=== PATIENT | male | born 1995 | race Caucasian/White ===

== ENCOUNTER 2024-04-27 20:57 | Emergency (ER) | payer OTHER, SELFPAY ==
[2024-04-27 21:03] VITALS: BP 120/76
--- NOTE | 2024-04-27 23:30 | ED.GENMED ---
History of Present Illness
General
Chief Complaint: Musculo-Skeletal Complaint
Source: patient
Exam Limitations: none
Time Seen by Provider: 04/27/24 23:11
Nursing documentation reviewed up to this point in time: agreed with
History of Present Illness
History of Present Illness:
Patient presents to ED secondary to sudden onset of right knee pain, as he was about to jump up, while playing basketball this evening. Denies direct trauma. Denies loss of sensation or weakness. Denies previous history of similar symptoms.
Past History
Past History
ED Past Medical History: Asthma and Psychiatric
ED Past Surgical History: Orthopedic
Social History
Tobacco: Non-smoker
Alcohol: Daily
Drug: Marijuana
Personal: Single
Living: with family
Employment: Not employed
Review of Systems
Review of Systems
Allergies reviewed?: Yes
All Other Systems: ROS reviewed and negative except as documented in HPI and ROS
Constitutional: Reports no symptoms
Musculoskeletal: Reports other (Knee pain)
Skin: Reports no symptoms
Neurological: Reports no symptoms
Phy Exam
Physical Exam
Physical Exam:
Physical Exam
General: moderate painful distress, not acutely ill. afebrile
Head: nc/at. eomi
Neck: supple. normal range of motion
Neuro: alert and oriented x 3. no focal neurological deficits
Skin: no rash
Psychiatric: well kept. interactive and cooperative
Extremities: soft tissue defect noted above patella with moderate tenderness to palpation.
Course
Orders/Labs/Results
Orders:
Orders
04/27/24 20:59
Knee, Right 4 or More Views [CR Knee- Right 4 Or More View*] Urgent
Comment:
Reason For Exam: SEVERE PAIN FROM BASKETBALL
04/27/24 23:30
Knee Immobilizer Right-Treatme ONCE
Oxycodone/Acetaminophen [Percocet 5/325] 1 tablet PO NOW STA
Vital Signs
Initial and Last Documented VS:
Initial Vital Signs
Temp Pulse Resp BP Pulse Ox
98.1 F 76 28 120/76 98
04/27/24 21:03 04/27/24 21:03 04/27/24 21:03 04/27/24 21:03 04/27/24 21:03
Last Documented Vital Signs
Temp Pulse Resp BP Pulse Ox
98.1 F 76 28 120/76 98
04/27/24 21:03 04/27/24 21:03 04/27/24 21:03 04/27/24 21:03 04/27/24 21:03
MDM/Problems Addressed
MDM/Problems Addressed:
X-ray: NAD.
History and exam concerning for potential, tendon injury. Patient otherwise remains neurovascular intact. Discussed with on-call orthopaedic surgeon, , who feels that patient can be discharged home at this time. Will f/u with the
patient in office this week for re-evaluation. Patient will be placed on knee immobilizer and provided with crutches for an outpatient follow-up with . Pt discharged home, to the care of his family
*Critical Care Note
Total Time (30-74mins, 75-104mins- exclusive of procedures): Not Applicable
ED Attending Note
-
Portions of this chart may have been created with voice recognition software.� Occasional wrong word or��sound alike� substitutions may have occurred due to the inherent limitations of voice recognition software.
Discharge Plan
Departure
Patient Disposition: Home (Routine Discharge)
Date of Disposition: 04/27/24
Time of Disposition: 23:51
Patient with high blood pressure during this ER visit?: No
Discharge Problem:
Injury of quadriceps tendon
Instructions: Knee Immobilizer (DC), Quadriceps and Patellar Tendon Injuries
Prescriptions:
New
oxycodone-acetaminophen [Percocet] 5-325 mg Tablet
1 tab PO Q6HPRN PRN (Reason: pain) Qty: 12 0RF
No Action
gabapentin 300 mg capsule
300 mg PO TID
Rx Instructions:
Day 1: 1 tablet 4 times per day. Day 2: 1 tablet 3 times per day. Day three 1 tablet twice a day. Day four 1 tablet at nighttime
propranolol 20 mg tablet
20 mg PO BID
Referrals:
Alfred Christensen DO [Family Provider] -
Memo Wick MD [Active] -
Activity Restrictions/Additional Instructions:
As discussed, please follow-up with referred orthopedic surgeon for further evaluation and treatment. Until then, strongly recommend continual use of provided crutches, to prevent further injuries. Your prescription has been sent electronically to
[facility] pharmacy in [place].
Interventions
Interventions:
*Risk Screen - Suicide Last Done: 04/28/24 00:22
*General Assessment Last Done: 04/28/24 00:22
*Neglect/Abuse Screening Last Done: 04/28/24 00:22
*ED COVID-19 Vaccine History Last Done: 04/28/24 00:22
*Nursing Disposition Last Done: 04/28/24 00:25
ED-Musculoskeletal Assessment Last Done: 04/28/24 00:22
Discharge Date and Time
Discharge Date/Time: 04/28/24 00:26
Print Language: JORDANIAN
[2024-04-27] MEDS: PERCOCET 5/325 1 TABLET PO (23:47)
== END 2024-04-28 00:26 | disposition home or self-care (01) ==
LOC: EMR 20:57
PROVIDERS: EMERGENCY PHYSICIAN Emergency Medicine; FAMILY PHYSICIAN Family Medicine
DX: S76.101A Unspecified injury of right quadriceps muscle, fascia and tendon, initial encounter (principal); X50.1XXA Overexertion from prolonged static or awkward postures, initial encounter; Y93.67 Activity, basketball
CPT/HCPCS: 99283; 29505; 73564

== ENCOUNTER → 2024-05-02 07:49 | Outpatient (REF) | payer OTHER, SELFPAY | LOC: MRI 07:49 | PROVIDERS: ATTENDING PHYSICIAN Orthopaedic Surgery | DX: S76.111A Strain of right quadriceps muscle, fascia and tendon, initial encounter (principal); M23.41 Loose body in knee, right knee | CPT/HCPCS: 73721 ==

== ENCOUNTER 2024-06-14 07:58 | Outpatient (RCR) | payer OTHER, SELFPAY | END 2024-06-14 23:59 | disposition home or self-care (01) | LOC: RPT 07:58 | PROVIDERS: ATTENDING PHYSICIAN Student in an Organized Health Care Education/Training Program | DX: Z47.89 Encounter for other orthopedic aftercare (principal); M23.41 Loose body in knee, right knee; S76.111D Strain of right quadriceps muscle, fascia and tendon, subsequent encounter; Z73.6 Limitation of activities due to disability; R26.89 Other abnormalities of gait and mobility; M25.561 Pain in right knee | CPT/HCPCS: 97110; 97140; 97162 ==

== ENCOUNTER 2024-07-13 09:08 | Outpatient (RCR) | payer OTHER, SELFPAY | END 2024-07-13 23:59 | disposition home or self-care (01) | LOC: RPT 09:08 | PROVIDERS: ATTENDING PHYSICIAN Student in an Organized Health Care Education/Training Program | DX: Z47.89 Encounter for other orthopedic aftercare (principal); S76.111D Strain of right quadriceps muscle, fascia and tendon, subsequent encounter (principal); M23.41 Loose body in knee, right knee; Z73.6 Limitation of activities due to disability; M25.561 Pain in right knee; R26.89 Other abnormalities of gait and mobility; X58.XXXD Exposure to other specified factors, subsequent encounter | CPT/HCPCS: 97110; 97140 ==

== ENCOUNTER 2024-07-23 09:05 | Outpatient (RCR) | payer OTHER, SELFPAY | END 2024-07-23 23:59 | disposition home or self-care (01) | LOC: RPT 09:05 | PROVIDERS: ATTENDING PHYSICIAN Student in an Organized Health Care Education/Training Program | DX: M23.41 Loose body in knee, right knee; S76.111D Strain of right quadriceps muscle, fascia and tendon, subsequent encounter; Z73.6 Limitation of activities due to disability; R26.89 Other abnormalities of gait and mobility; M25.561 Pain in right knee; Z47.89 Encounter for other orthopedic aftercare; X58.XXXD Exposure to other specified factors, subsequent encounter | CPT/HCPCS: 97110; 97140 ==